=== PATIENT | female | born 1970 | race American Indian/Alaskan Native ===

== ENCOUNTER 2020-01-29 12:53 | Outpatient (CLI) | payer OTHER ==
--- NOTE | 2020-01-29 14:34 | Ultrasound Report ---
DIGITAL DIAGNOSTIC MAMMOGRAM WITH CAD, 01/29/2020 INDICATION: For clip placement after ultrasound biopsy. RIGHT BREAST MASS TECHNIQUE: Digital right mammographic imaging was performed. This examination was interpreted with the benefit of Computer-aided Detection analysis. COMPARISON: 01/03/2020 FINDINGS: Breast Density: The breast is mostly fatty. A biopsy clip is identified at 11:00 8 cm from the nipple on the CC view and 13 cm from the nipple on the lateral view. No mass is identified at the clip. IMPRESSION: Concordant clip placement after ultrasound-guided needle biopsy Follow up recommendation: No recall. Post biopsy imaging. A "normal" or negative report should not discourage follow up or biopsy of a clinically significant f inding. A written summary of these findings will be mailed to the patient. The patient will be entered into a mammography reporting system which will generate a reminder letter for the patient's next appointmen t at the appropriate interval. According to the [employer], yearly mammograms are recommended starting at age 40 and continuing as long as a woman is in good health. Breast MRI is recommended for women with an matteo roximately 20-25% or greater lifetime risk of breast cancer, including women with a strong family his tory of breast or ovarian cancer and women who have been treated for Hodgkin's disease. Signer Name: Matt Robertson MD Signed: 01/29/2020 2:29 PM Workstation Name: [id number]
--- NOTE | 2020-01-29 14:59 | Mammography Report ---
DIGITAL DIAGNOSTIC MAMMOGRAM WITH CAD, 01/29/2020 INDICATION: For clip placement after ultrasound biopsy. RIGHT BREAST MASS TECHNIQUE: Digital right mammographic imaging was performed. This examination was interpreted with t he benefit of Computer-aided Detection analysis. COMPARISON: 01/03/2020 FINDINGS: Breast Density: The breast is mostly fatty. A biopsy clip is identified at 11:00 8 cm from the nipple on the CC view and 13 cm from the nipple on the lateral view. No mass is identified at the clip. IMPRESSION: Concordant clip placement after ultrasound-guided needle biopsy Follow up recommendation: No recall. Post biopsy imaging. A "normal" or negative report should not discourage follow up or biopsy of a clinically significant f inding. A written summary of these findings will be mailed to the patient. The patient will be entered into a mammography reporting system which will generate a reminder letter for the patient's next appointmen t at the appropriate interval. According to the [employer], yearly mammograms are recommended starting at age 40 and continuing as long as a woman is in good health. Breast MRI is recommended for women with an appr oximately 20-25% or greater lifetime risk of breast cancer, including women with a strong family hist ory of breast or ovarian cancer and women who have been treated for Hodgkin's disease. Signer Name: Matt Robertson MD Signed: 01/29/2020 2:54 PM Workstation Name: [id number]
== END 2020-01-29 12:54 | disposition home or self-care (01) ==
LOC: SPVWC 12:53
PROVIDERS: ATTEND Surgery
DX: N63.11 Unspecified lump in the right breast, upper outer quadrant (principal); N64.89 Other specified disorders of breast
CPT/HCPCS: 88305; 88312

== ENCOUNTER 2020-08-04 08:19 | Outpatient (CLI) | payer OTHER ==
--- NOTE | 2020-08-04 09:11 | Mammography Report ---
DIGITAL DIAGNOSTIC MAMMOGRAM WITH CAD, 08/04/2020 INDICATION: Follow-up right mammogram following biopsy, 01/29/2020 TECHNIQUE: Digital right mammographic imaging was performed. This examination was interpreted with the benefit of Computer-aided Detection analysis. COMPARISON: 01/03/2020 FINDINGS: Breast Density: There are scattered areas of fibroglandular density. There is no evidence of dominant mass, suspicious calcifications or architectural distortion in the r ight breast. Biopsy clip is again noted in the superior right breast. Right saline retropectoral [place] implant is again noted and appears unremarkable. IMPRESSION: Benign findings. No evidence of malignancy or significant interval change. Follow up recommendation: Routine yearly BI-RADS Category 2: Benign. A "normal" or negative report should not discourage follow up or biopsy of a clinically significant f inding. A written summary of these findings will be mailed to the patient. The patient will be entered into a mammography reporting system which will generate a reminder letter for the patient's next appointmen t at the appropriate interval. According to the [employer], yearly mammograms are recommended starting at age 40 and continuing as long as a woman is in good health. Breast MRI is recommended for women with an matteo roximately 20-25% or greater lifetime risk of breast cancer, including women with a strong family his tory of breast or ovarian cancer and women who have been treated for Hodgkin's disease. Signer Name: Lisa Alvarado MD Signed: 08/04/2020 9:06 AM Workstation Name: [id number]
== END 2020-08-04 08:20 | disposition home or self-care (01) ==
LOC: SPVWC 08:19
PROVIDERS: ATTEND Surgery
DX: R92.8 Other abnormal and inconclusive findings on diagnostic imaging of breast (principal)

== ENCOUNTER 2021-08-05 09:05 | Outpatient (CLI) | payer OTHER ==
--- NOTE | 2021-08-05 11:10 | Mammography Report ---
DIGITAL SCREENING MAMMOGRAM WITH CAD, 08/05/2021 CLINICAL INFORMATION / INDICATION: Routine screening mammography. TECHNIQUE: Digital bilateral 2D mammography was obtained in the craniocaudal and mediolateral obliqu e projections. This examination was interpreted with the benefit of Computer-Aided Detection analysis . COMPARISON: 08/04/2020, 01/09/2020, 01/03/2020 FINDINGS: Breast Density: There are scattered areas of fibroglandular density. No dominant mass, suspicious calcifications, or architectural distortion in the left breast. There are new grouped calcifications in the superior aspect of the right breast seen on the MLO view only. Bilateral retropectoral implants are again noted. IMPRESSION: 1. New right breast calcifications as described seen on the MLO view only. Recommend additional evalu ation with magnification views and exaggerated CC view to identify the exact location of these calcif ications. Follow up recommendation: Special View: Mag BI-RADS Category 0: Incomplete. Needs additional imaging evaluation and/or prior mammograms for andreina rison. A "normal" or negative report should not discourage follow up or biopsy of a clinically significant f inding. A written summary of these findings will be mailed to the patient. The patient will be entered into a mammography reporting system which will generate a reminder letter for the patient's next appointmen t at the appropriate interval. The [employer] recommends yearly mammograms starting at age 40 and continuing as l beau as a woman is in good health. Breast MRI is recommended for women with an approximate 20-25% or greater lifetime risk of breast cancer, including women with a strong family history of breast or ova roger cancer or who have been treated for Hodgkin's disease. Signer Name: Vanna Huynh MD Signed: 08/05/2021 11:05 AM Workstation Name: [id number]
== END 2021-08-05 09:06 | disposition home or self-care (01) ==
LOC: SPVWC 09:05
PROVIDERS: ATTEND Surgery
DX: Z12.31 Encounter for screening mammogram for malignant neoplasm of breast (principal); N64.89 Other specified disorders of breast
CPT/HCPCS: 77067